=== PATIENT | male | born 1960 ===

== ENCOUNTER 2022-12-08 16:41 | Emergency (ER) | payer OTHER ==
[~2022-12-08] VITALS: Ht 182.9 cm; Wt 95.5 kg
[2022-12-08] MEDS ORDERED: LIDOCAINE 1% 10 ML VIAL SQ ONE (19:15)
[2022-12-08] MEDS ORDERED: BACITRACIN 0.9 GM PACKET OINTMENT TP ONE (20:00)
[2022-12-08] MEDS ORDERED: AMOX1TAB16 PO (20:37)
[2022-12-08 20:53] VITALS: BP 127/75
== END 2022-12-08 20:54 | disposition home or self-care (01) ==
LOC: EMS 16:42
DX: S81.851A Open bite, right lower leg, initial encounter (principal); F17.210 Nicotine dependence, cigarettes, uncomplicated; F12.90 Cannabis use, unspecified, uncomplicated; W54.0XXA Bitten by dog, initial encounter; Y93.89 Activity, other specified; Y92.89 Other specified places as the place of occurrence of the external cause; Y99.8 Other external cause status
CPT/HCPCS: 99283; 12002; J3490